=== PATIENT | female | born 1935 | race Caucasian/White ===

== ENCOUNTER 2024-03-11 11:05 | Outpatient (CLI) | payer MEDICARE, MEDICAID ==
[~2024-03-11 11:05] MED LIST: ALBUTEROL; CLIN-232 PO; CLOP75TA9 PO; DILT120C51 PO; NITR1PAT68 TD; OXYC-145 PO
== END 2024-03-11 23:59 | disposition home or self-care (01) ==
LOC: RAD 11:05
PROVIDERS: ATTEND Family Medicine
DX: M47.812 Spondylosis without myelopathy or radiculopathy, cervical region (principal); M48.02 Spinal stenosis, cervical region; M47.814 Spondylosis without myelopathy or radiculopathy, thoracic region; M25.78 Osteophyte, vertebrae; M25.811 Other specified joint disorders, right shoulder; I70.0 Atherosclerosis of aorta; M25.511 Pain in right shoulder; M54.2 Cervicalgia; M54.9 Dorsalgia, unspecified
CPT/HCPCS: 72040; 72074; 72100; 73030

== ENCOUNTER 2025-06-29 14:38 | Outpatient (CLI) | payer MEDICARE, MEDICAID ==
--- NOTE | 2025-06-29 18:37 | RADIOLOGY REPORT ---
EXAM: MR MRI UPPER EXTREMITY RIGHT INDICATION: PAIN IN RIGHT SHOULDER TECHNIQUE: Multiplanar, multisequence MR images of the right shoulder were obtained in the absence of gadolinium contrast material. COMPARISON: None FINDINGS: [CORACOACROMIAL ARCH]: Moderate degenerative change of the acromioclavicular joint. Intact coracoclav icular ligaments. Intact coracoacromial ligaments. Moderate amount of subacromial/subdeltoid bursal d istention. [ROTATOR CUFF]: Severe rotator cuff tendinosis and difficult to exclude full-thickness tears of the a nterior fibers of the infraspinatus and posterior fibers of the supraspinatus (7-8). [BICEPS TENDON]: Intact without tenosynovitis. [LABRUM]: Macerated tearing of the entirety of the labrum with significant complete volume loss [CARTILAGE]: Diffuse opposing full-thickness cartilage loss of the entirety of the glenohumeral joint with significant osseous remodeling [GLENOHUMERAL JOINT]: Large glenohumeral joint effusion. No discrete intra-articular body. Axillary p ouch thickening. [BONES]: Significant osseous erosions of the posterior humeral head none likely superior glenoid. Os seous scalloping/ remodeling related to severe secondary degenerative change of the glenohumeral join t [MUSCLES]: Normal muscle bulk of the rotator cuff muscles. [NEUROVASCULAR/LYMPH NODES]: Normal. [OTHER]: None. IMPRESSION: 1. Severe rotator cuff tendinosis and difficult to exclude full-thickness tears of the anterior fiber s of the infraspinatus and posterior fibers of the supraspinatus. 2. Osseous erosion of the posterior humeral head in conjunction with joint effusion, trace areas of s ynovitis, and severe tendinosis and secondary severe degenerative change. Overall imaging findings ma y be seen in the setting of crystalline deposition versus inflammatory arthropathy with secondary sev ere end-stage osteoarthrosis.
== END 2025-06-29 23:59 | disposition home or self-care (01) ==
LOC: MRI 14:38
PROVIDERS: ATTEND Family Medicine
DX: M75.121 Complete rotator cuff tear or rupture of right shoulder, not specified as traumatic (principal); M25.511 Pain in right shoulder; M19.011 Primary osteoarthritis, right shoulder; M75.51 Bursitis of right shoulder; M77.8 Other enthesopathies, not elsewhere classified
CPT/HCPCS: 73221